=== PATIENT | female | born 1980 | race Hispanic/Latino ===

== ENCOUNTER 2022-01-28 14:10 | Emergency (ER) | payer SELFPAY ==
[2022-01-28] MEDS ORDERED: oxyCODONE /ACETAMINOPHEN 5-325MG TAB PO ONE (23:09)
--- NOTE | 2022-01-28 23:19 | Emergency Department Report ---
ED Lower Extremity HPI - General Chief Complaint: Extremity Injury, Lower Stated Complaint: LEFT LEG PAIN Time Seen by Provider: 01/28/22 21:43 Source: patient Mode of arrival: Ambulatory Limitations: No Limitations - History of Present Illness Initial Comments: Four 1-year-old female Hern[place] emerged department complaining of pain to the hamstring which started after walking up on the treadmill. States that she was seen on yesterday she obtained an x-ray and ultrasound to ensure that there was no other injury both tests were negative. She was discharged home with Flexeril but reports that Flexeril has not helped Have not medicated pain so returns emergency department seeking stronger pain medications. She reports no reinjury, no worsening injury, no numbness, no tingling, no loss of bowel bladder, no saddle paresthesia. Pain is worse with palpation and range of motion standing and extension of her of her lower extremity MD Complaint: leg injury -: Gradual Injury: Leg: Left Type of Injury: hyperextension Place: home Improves With: nothing, NSAID Worsens With: weight bearing, movement Associated Symptoms: able to partially bear weight - Related Data Previous Rx's Medication Instructions Recorded Last Taken Type methOCARBAMOL [Robaxin TAB] 750 mg PO Q8H #20 01/28/22 Unknown Rx traMADoL [Ultram] 50 mg PO Q6HR PRN #20 tablet 01/28/22 Unknown Rx Allergies Allergy/AdvReac Type Severity Reaction Status Date / Time ketorolac [From Toradol] Allergy Rash Verified 01/28/22 15:42 Sulfa (Sulfonamide Allergy Rash Verified 01/28/22 15:42 Antibiotics) ED Review of Systems ROS: Stated complaint: LEFT LEG PAIN Other details as noted in HPI Comment: All other systems reviewed and negative ED Past Medical Hx - Past Medical History Previous Medical History?: Yes Additional medical history: kidney stones - Surgical History Past Surgical History?: No - Medications Home Medications: Home Medications Medication Instructions Recorded Confirmed Last Taken Type methOCARBAMOL [Robaxin TAB] 750 mg PO Q8H #20 01/28/22 Unknown Rx traMADoL [Ultram] 50 mg PO Q6HR PRN #20 tablet 01/28/22 Unknown Rx ED Physical Exam - General Limitations: No Limitations General appearance: alert, in no apparent distress - Head Head exam: Present: atraumatic, normocephalic - Eye Eye exam: Present: normal appearance, PERRL, EOMI Pupils: Present: normal accommodation - ENT ENT exam: Present: normal exam, normal orophraynx, mucous membranes moist, TM's normal bilaterally - Neck Neck exam: Present: normal inspection, full ROM - Respiratory Respiratory exam: Present: normal lung sounds bilaterally. Absent: respiratory distress, wheezes, rales, rhonchi, chest wall tenderness, accessory muscle use - Cardiovascular Cardiovascular Exam: Present: regular rate, normal rhythm. Absent: systolic murmur, diastolic murmur, rubs, gallop - GI/Abdominal GI/Abdominal exam: Present: soft, normal bowel sounds - Extremities Exam Extremities exam: Present: normal inspection, tenderness (Tenderness to the belly of the hamstring with palpation. Pain with extension of the left lower extremity as well. Pulses 2+ cap refills brisk), normal capillary refill - Back Exam Back exam: Present: normal inspection. Absent: CVA tenderness (R), CVA tenderness (L) - Neurological Exam Neurological exam: Present: alert, oriented X3, CN II-XII intact - Psychiatric Psychiatric exam: Present: normal affect, normal mood - Skin Skin exam: Present: warm, dry, intact, normal color. Absent: rash ED Course Vital Signs 01/28/22 15:42 Temperature 98.1 F Pulse Rate 75 Respiratory 18 Rate Blood Pressure 162/98 [Left] O2 Sat by Pulse 97 Oximetry Critical care attestation.: If time is entered above; I have spent that time in minutes in the direct care of this critically ill patient, excluding procedure time. ED Disposition Clinical Impression: Left leg pain, Hamstring muscle strain Disposition: HOME / SELF CARE / HOMELESS Is pt being admited?: No Does the pt Need Aspirin: No Condition: Stable Instructions: Muscle Strain, [id number], How to Use Cold Therapy, How to Use Cold Therapy, [id number] Prescriptions: methOCARBAMOL [Robaxin TAB] 750 mg PO Q8H #20 traMADoL [Ultram] 50 mg PO Q6HR PRN #20 tablet PRN Reason: Pain Referrals: PHIL MEJIA MD [Primary Care Provider] - 3-5 Days
[2022-01-29 00:05] VITALS: BP 156/98
== END 2022-01-29 00:05 | disposition home or self-care (01) ==
LOC: ED 14:10
DX: S86.912A Strain of unspecified muscle(s) and tendon(s) at lower leg level, left leg, initial encounter (principal); M79.605 Pain in left leg; Y93.A1 Activity, exercise machines primarily for cardiorespiratory conditioning; Y93.89 Activity, other specified; Y92.89 Other specified places as the place of occurrence of the external cause; Y99.8 Other external cause status
CPT/HCPCS: 99282